=== PATIENT | female | born 1990 | race American Indian/Alaskan Native ===

== ENCOUNTER 2020-12-30 13:41 | Emergency (ER) | payer SELFPAY ==
[~2020-12-30] VITALS: Ht 162.6 cm; Wt 85.0 kg
[2020-12-30] MEDS ORDERED: AMOX-494 MT ×2 (16:34→17:04)
[2020-12-30] MEDS ORDERED: IBUP-2030 PO ×2 (16:34→17:04)
[2020-12-30 16:58] VITALS: BP 125/74
[2020-12-30] MEDS ORDERED: TRAM50TA3 PO (17:04)
== END 2020-12-30 17:31 | disposition home or self-care (01) ==
LOC: ER 14:09
DX: K02.9 Dental caries, unspecified (principal)
CPT/HCPCS: 99283